=== PATIENT | male | born 1990 | race Two or more races ===

== ENCOUNTER 2017-06-26 19:15 | Emergency (ER) | payer OTHER ==
[~2017-06-26] VITALS: Ht 165.1 cm; Wt 72.6 kg
[~2017-06-26 19:15] MED LIST: IBUP200T77 PO; OXYC-327 PO; PENI250T85 PO
[2017-06-26 19:20] VITALS: BP 132/75
[2017-06-26] MEDS ORDERED: METH4TAB2 PO (19:51)
[2017-06-26] MEDS ORDERED: AMOX500C PO (19:51)
--- NOTE | 2017-06-26 19:51 | PHYS DOC ---
Past Medical History Past Medical History: Asthma Past Surgical History: Other Additional Past Surgical Histo: ACL/MENISCUS R KNEE Alcohol Use: Occasionally Drug Use: Marijuana Adult General Chief Complaint Chief Complaint: CHEST WALL PAIN HPI HPI Patient is a 26 year old male who presents with sore throat and sharp chest pain. Sore throat started last night. He felt feverish today but no temperature taken. He developed sharp left-sided chest pain today. Nonsmoker, no recent travel. No leg pain swelling or tenderness. No cough; no hemoptysis. He has asthma and has been using his meds as directed. Review of Systems Review of Systems Constitutional: Subjective fever or chills Eyes: Denies change in visual acuity, redness, or eye pain HENT: POS nasal congestion & sore throat Respiratory: Some cough but no shortness of breath Cardiovascular: sharp left sided chest pain GI: Denies abdominal pain, nausea, vomiting, bloody stools or diarrhea : Denies dysuria or hematuria Musculoskeletal: Denies back pain or joint pain; no leg pain or swelling Integument: Denies rash or skin lesions Neurologic: Denies headache, focal weakness or sensory changes Allergies Allergies Allergies Coded Allergies Type Severity Reaction Last Updated Verified No Known Drug Allergies 07/02/16 No Physical Exam Physical Exam Constitutional: Well developed, well nourished, no acute distress, non-toxic appearance. HENT: Normocephalic, atraumatic, bilateral external ears normal, TM clear bilaterally; oropharynx moist, bilateral tonsillar hypertrophy, exudate noted, erythema. No peritonsillar abscess noted, no pointing noted, uvula midline. No drooling. Nose normal. Eyes: PERRLA, EOMI, conjunctiva normal, no discharge. Neck: Normal range of motion, no tenderness, supple, no stridor. Cardiovascular:Heart rate regular rhythm, no murmur Lungs & Thorax: Bilateral breath sounds clear to auscultation. No rales, rhonchi or wheezing. No crepitance or subcut emphysema. Abdomen: Bowel sounds normal, soft, no tenderness, no masses, no pulsatile masses. Skin: Warm, dry, no erythema, no rash. Back: No tenderness, no CVA tenderness. Extremities: No tenderness, no cyanosis, no clubbing, ROM intact, no edema. Neurologic: Alert and oriented X 3, normal motor function, normal sensory function, no focal deficits noted. Psychologic: Affect normal, judgement normal, mood normal. Current Patient Data Vital Signs Vital Signs Date Time Temp Pulse Resp B/P (MAP) Pulse Ox O2 Delivery O2 Flow Rate FiO2 06/26/17 19:20 98.3 74 18 99 Room Air 98.3 EKG EKG EKG interpreted by myself at 1941 PM. Heart rate is 81, incomplete right bundle branch block, nonspecific ST changes, no ST elevation. Course & Med Decision Making Course & Med Decision Making Patient diarrhea by myself upon arrival. he has pharyngeal erythema and exudate. Chest pain appears pleuritic in nature. PERC Criteria Assessment: Age > 50: No HR > 100: No 02 < 95%: No H/o DVT/PE: No Recent trauma/surgery: No Hemoptysis No Exogenous Estrogen: No Unilateral Leg swelling: No Pretest probability > 15%: No Less than 2% risk of PE. No further work up is necessary Will presumptively treat for strep. Placed on amoxicillin and Medrol Dosepak. he has no respiratory compromise at this time. No active wheezing and no respiratory distress. He was given precautions on when to return. I have spoken with the patient and/or caregivers. I have explained the patient' s condition, diagnosis and treatment plan based on the information available to me at this time. I have answered the patient's and/or caregiver's questions and addressed any concerns. The patient and/or caregivers have as good an understanding of the patient's diagnosis, condition and treatment plan as can be expected at this point. The patient's condition is stable and appropriate for discharge from the emergency department. The patient will pursue further outpatient evaluation with the primary care physician or other designated or consulting physician as outlined in the discharge instructions. The patient and/or caregivers are agreeable to this plan of care and follow-up instructions have been explained in detail. The patient and/or caregivers have received these instructions in written format and have expressed an understanding of the discharge instructions. The patient and/or caregivers are aware that any significant change in condition or worsening of symptoms should prompt an immediate return to this or the closest emergency department or a call to 911. Shelley Disclaimer Dragon Disclaimer This electronic medical record was generated, in whole or in part, using a voice recognition dictation system. Departure Departure Impression: Primary Impression: Exudative pharyngitis Additional Impressions: Pleuritic chest pain Asthma Disposition: HOME, SELF-CARE Condition: GOOD Referrals: LANCE MARTINEZ MD (PCP) Patient Instructions: Viral and Bacterial Pharyngitis Scripts Methylprednisolone (MEDROL) 4 Mg Tab.ds.pk 1 PKG PO UD, #1 PKG Prov: RACHEL JIMENEZ MD 06/26/17 Amoxicillin (AMOXICILLIN) 500 Mg Capsule 1 CAP PO TID, #30 CAP Prov: RACHEL JIMENEZ MD 06/26/17 Problem Qualifiers Additional Impressions: Asthma Asthma severity: mild intermittent Asthma complication type: uncomplicated Qualified Codes: J45.20 - Mild intermittent asthma, uncomplicated RACHEL JIMENEZ MD Jun 26, 2017 19:51
--- NOTE | 2017-06-27 06:16 | EKG ---
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
== END 2017-06-26 19:55 | disposition home or self-care (01) ==
LOC: ER 19:15
DX: J02.9 Acute pharyngitis, unspecified (principal); J45.20 Mild intermittent asthma, uncomplicated
CPT/HCPCS: 93005; 99283-25

== ENCOUNTER 2017-09-07 22:51 | Emergency (ER) | payer OTHER ==
[~2017-09-07] VITALS: Ht 165.1 cm; Wt 72.6 kg
[~2017-09-07 22:51] MED LIST changes: +AMOX500C PO; +METH4TAB2 PO
[2017-09-07 23:22] LABS: BASO # 0.1 x10^3/uL (0.0-0.2); BASO % 1 % (0-3); EOS % 3 % (0-3); HEMATOCRIT 43.4 % (39.0-53.0); HEMOGLOBIN 14.5 g/dL (13.0-17.5); LYMPH # 2.7 x10^3/uL (1.0-4.8); LYMPH % 28 % (24-48); MEAN CORPUSCULAR HEMOGLOBIN 30 pg (25-35); MEAN CORPUSCULAR HGB CONC 34 g/dL (31-37); MEAN CORPUSCULAR VOLUME 90 fL (79-100); MONO % 7 % (0-9); NEUT % 61 % (31-73); PLATELET COUNT 168 x10^3/uL (140-400); RED BLOOD COUNT 4.82 x10^6/uL (4.30-5.70); RED CELL DISTRIBUTION WIDTH 13.4 % (11.5-14.5); WHITE BLOOD COUNT 9.5 x10^3/uL (4.0-11.0)
[2017-09-07] MEDS ORDERED: LIDO:MAALOX:DONNATAL 1:1:1 15 ML SINGLE DOSE SWSW ONE (23:30)
[2017-09-07] MEDS ORDERED: KETOROLAC 30 MG/ML INJ. IV ONE (23:30)
[2017-09-07 23:32] LABS: CALCIUM 9.2 mg/dL (8.5-10.1); CREATININE 0.8 mg/dL (0.7-1.3); GFR 116.9
[2017-09-07 23:38] LABS: ALBUMIN 3.7 g/dL (3.4-5.0); ALBUMIN/GLOBULIN RATIO 1.1 (1.0-1.7); TOTAL BILIRUBIN 0.2 mg/dL (0.2-1.0)
[2017-09-07 23:58] LABS: BARBITURATES NEG (NEG); BENZODIAZEPINES NEG (NEG); CANNABINOIDS POS (NEG); COCAINE POS (NEG); METHADONE NEG (NEG); OPIATES NEG (NEG); PHENCYCLIDINE NEG (NEG)
[2017-09-08] MEDS ORDERED: RANI150T6 PO (00:13)
--- NOTE | 2017-09-08 00:13 | PHYS DOC ---
Past Medical History Past Medical History: Asthma Past Surgical History: Other Additional Past Surgical Histo: ACL/MENISCUS R KNEE Alcohol Use: Occasionally Drug Use: Marijuana Adult General Chief Complaint Chief Complaint: CHEST PAIN HPI HPI Patient is a 26 year old male who presents with chest pain. The patient reports onset of pain about 3 hours prior to arrival while watching television. States pain is across his chest with radiation to back, describes as tightness , associated with shortness of breath. Denies nausea/vomiting, diaphoresis. Denies fevers/chills, cough, lower extremity pain/swelling. Reports previous history of similar pain several months ago, was evaluated here & no serious cause was identified. He reports marijuana use, history of asthma. Denies recent travel/surgery, no history of DVT/PE or family history of sudden cardiac . PCP is Dr. Pierre. Review of Systems Review of Systems Constitutional: Denies fever or chills Eyes: Denies change in visual acuity HENT: Denies nasal congestion or sore throat Respiratory: Denies cough, reports shortness of breath Cardiovascular: Reports chest pain, denies edema GI: Denies abdominal pain, nausea, vomiting Musculoskeletal: Denies back pain or joint pain Integument: Denies rash or skin lesions Neurologic: Denies headache, focal weakness or sensory changes Current Medications Current Medications Current Medications Medications (Trade) Dose Ordered Sig/Omar Start Time Stop Time Status Last Admin Dose Admin Ketorolac Tromethamine (Toradol) 30 mg 1X ONCE 09/07/17 23:30 09/07/17 23:31 DC 09/07/17 23:36 30 MG Multi-Ingredient Mouthwash/Gargle (Gi Cocktail Single Dose) 15 ml 1X ONCE 09/07/17 23:30 09/07/17 23:31 DC 09/07/17 23:35 15 ML Allergies Allergies Allergies Coded Allergies Type Severity Reaction Last Updated Verified No Known Drug Allergies 07/02/16 No Physical Exam Physical Exam Constitutional: Well developed, well nourished, no acute distress, non-toxic appearance. HENT: Normocephalic, atraumatic, bilateral external ears normal, oropharynx moist, nose normal. Eyes: conjunctiva normal, no discharge. Neck: supple, no stridor. Cardiovascular: RRR, no murmurs, no edema. Lungs & Thorax: LCTAB, no wheezing, no respiratory distress. reproducible tenderness with palpation over anterior chest wall. Abdomen: soft, nontender, nondistended. Skin: Warm, dry, no erythema, no rash. Back: No tenderness. Extremities: No tenderness, no edema. no calf tenderness or swelling. Neurologic: Alert and oriented X 3, no focal deficits noted. Psychologic: Affect normal, judgement normal, mood normal. Current Patient Data Vital Signs Vital Signs Date Time Temp Pulse Resp B/P (MAP) Pulse Ox O2 Delivery O2 Flow Rate FiO2 09/08/17 00:30 64 16 92/51 (65) 97 Room Air 09/07/17 22:58 98.2 98.2 Lab Values Laboratory Tests Test 09/07/17 23:05 09/07/17 23:46 White Blood Count 9.5 x10^3/uL (4.0-11.0) Red Blood Count 4.82 x10^6/uL (4.30-5.70) Hemoglobin 14.5 g/dL (13.0-17.5) Hematocrit 43.4 % (39.0-53.0) Mean Corpuscular Volume 90 fL (79-100) Mean Corpuscular Hemoglobin 30 pg (25-35) Mean Corpuscular Hemoglobin Concent 34 g/dL (31-37) Red Cell Distribution Width 13.4 % (11.5-14.5) Platelet Count 168 x10^3/uL (140-400) Neutrophils (%) (Auto) 61 % (31-73) Lymphocytes (%) (Auto) 28 % (24-48) Monocytes (%) (Auto) 7 % (0-9) Eosinophils (%) (Auto) 3 % (0-3) Basophils (%) (Auto) 1 % (0-3) Neutrophils # (Auto) 5.8 x10^3uL (1.8-7.7) Lymphocytes # (Auto) 2.7 x10^3/uL (1.0-4.8) Monocytes # (Auto) 0.7 x10^3/uL (0.0-1.1) Eosinophils # (Auto) 0.2 x10^3/uL (0.0-0.7) Basophils # (Auto) 0.1 x10^3/uL (0.0-0.2) Sodium Level 144 mmol/L (136-145) Potassium Level 4.0 mmol/L (3.5-5.1) Chloride Level 107 mmol/L (98-107) Carbon Dioxide Level 26 mmol/L (21-32) Anion Gap 11 (6-14) Blood Urea Nitrogen 22 mg/dL (8-26) Creatinine 0.8 mg/dL (0.7-1.3) Estimated GFR (Cockcroft-Gault) 116.9 BUN/Creatinine Ratio 28 (6-20) H Glucose Level 122 mg/dL (70-99) H Calcium Level 9.2 mg/dL (8.5-10.1) Total Bilirubin 0.2 mg/dL (0.2-1.0) Aspartate Amino Transferase (AST) 15 U/L (15-37) Alanine Aminotransferase (ALT) 11 U/L (16-63) L Alkaline Phosphatase 86 U/L (46-116) Troponin I Quantitative < 0.017 ng/mL (0.000-0.055) HP-Lsc-W-Type Natriuretic Peptide 20 pg/mL (0-124) Total Protein 7.0 g/dL (6.4-8.2) Albumin 3.7 g/dL (3.4-5.0) Albumin/Globulin Ratio 1.1 (1.0-1.7) Urine Opiates Screen Neg (NEG) Urine Methadone Screen Neg (NEG) Urine Barbiturates Neg (NEG) Urine Phencyclidine Screen Neg (NEG) Urine Amphetamine/Methamphetamine Neg (NEG) Urine Benzodiazepines Screen Neg (NEG) Urine Cocaine Screen Pos (NEG) Urine Cannabinoids Screen Pos (NEG) Urine Ethyl Alcohol Neg (NEG) Laboratory Tests 09/07/17 23:05 Laboratory Tests 09/07/17 23:05 EKG EKG interpreted by me: NSR rate 62, no acute ST/T wave changes, normal intervals, no ectopy.[] Radiology/Procedures Radiology/Procedures CXR: 2 views, interpreted by me: no cardiomegaly, no infiltrate, no pneumothorax, no acute process.[] Course & Med Decision Making Course & Med Decision Making Pertinent Labs and Imaging studies reviewed. (See chart for details) The patient presents with chest pain. Pain resolving upon arrival here. Gave toradol & GI cocktail. Obtained labs, EKG, CXR. No significant cardiopulmonary abnormality identified, but he did have cocaine & marijuana positive on tox screen. Counseled regarding cessation from drug abuse, particularly cocaine. Recommend rest, hydration, tylenol/ibuprofen for pain, try zantac, follow up with Dr. Pierre in 2-3 days, may require further cardiac evaluation. Come back for severe chest pain or shortness of breath, any otherwise worsening condition. Discharged home in stable condition. [] Dragon Disclaimer Dragon Disclaimer This electronic medical record was generated, in whole or in part, using a voice recognition dictation system. Departure Departure Impression: Primary Impression: Chest pain Disposition: , SELF-CARE Condition: STABLE Referrals: LANCE PIERRE MD (PCP) Patient Instructions: Chest Pain (Nonspecific), [id number] Additional Instructions: You were seen in the emergency department today for chest pain. Labs, EKG, & chest x-ray did not show a serious cause of symptoms. Please rest, take tylenol or ibuprofen for pain, use zantac, avoid using drugs especially cocaine. Follow up with Dr. Pierre in primary care clinic in 2-3 days. Come back for severe chest pain or shortness of breath, or any otherwise worsening condition. Scripts Ranitidine Hcl (ZANTAC) 150 Mg Tablet 150 MG PO DAILY, #15 TAB Prov: DAVID OCONNOR MD 09/08/17 DAVID OCONNOR MD Sep 08, 2017 00:13
[2017-09-08 00:30] VITALS: BP 92/51
--- NOTE | 2017-09-08 06:27 | EKG ---
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
--- NOTE | 2017-09-08 07:28 | RAD ---
Indication chest pain. Frontal and lateral views of the chest were obtained. No prior imaging of the chest is available. The heart and pulmonary vessels and mediastinum appear normal. The lungs are clear. There is no pleural fluid or pneumothorax. The bony structures appear grossly intact. IMPRESSION: Normal two-view chest
== END 2017-09-08 00:44 | disposition home or self-care (01) ==
LOC: ER 22:51
DX: R07.89 Other chest pain (principal); J45.909 Unspecified asthma, uncomplicated
CPT/HCPCS: 36415; 71020; 80053; 80307; 83880; 84484; 85025; 93005; 96374; 99285; J1885; G0479

== ENCOUNTER 2018-03-25 12:15 | Emergency (ER) | payer OTHER ==
[2018-03-25 13:28] LABS: BILIRUBIN,URINE NEGATIVE (NEG); CLARITY,URINE CLEAR; COLOR,URINE YELLOW; GLUCOSE,URINE NEGATIVE (NEG); NITRITE,URINE NEGATIVE (NEG); PH,URINE 6.5; PROTEIN,URINE NEGATIVE (NEG-TRACE)
[2018-03-25 13:35] LABS: BACTERIA,URINE 0 /HPF (0-FEW); RBC,URINE 0 /HPF (0-2); SQUAMOUS EPITHELIAL CELL,UR OCC /LPF; WBC,URINE 0 /HPF (0-4)
== END 2018-03-25 13:58 | disposition home or self-care (01) ==
LOC: ER 12:15
DX: S39.012A Strain of muscle, fascia and tendon of lower back, initial encounter (principal); J45.909 Unspecified asthma, uncomplicated; X58.XXXA Exposure to other specified factors, initial encounter; Y93.89 Activity, other specified; Y99.8 Other external cause status; Y92.89 Other specified places as the place of occurrence of the external cause
CPT/HCPCS: 81001; 99283

== ENCOUNTER 2021-09-24 02:49 | Inpatient (IN) | payer OTHER ==
[~2021-09-24] VITALS: Ht 165.1 cm; Wt 75.0 kg
[~2021-09-24 02:49] MED LIST changes: +CYCL5TAB PO; +IBUP-1060 PO; -OXYC-327 PO; +OXYC1TAB19 PO; +RANI-376 PO
[2021-09-24 03:10] LABS: BILIRUBIN,URINE NEGATIVE (NEG); CLARITY,URINE CLEAR; COLOR,URINE YELLOW; NITRITE,URINE NEGATIVE (NEG); PROTEIN,URINE NEGATIVE (NEG-TRACE)
--- NOTE | 2021-09-24 03:11 | PHYS DOC ---
Past Medical History Past Medical History: No Pertinent History, Asthma Past Surgical History: Other Additional Past Surgical Histo: ACL/MENISCUS R KNEE Smoking Status: Never Smoker Alcohol Use: Occasionally Drug Use: Marijuana General Adult EDM: Chief Complaint: ABDOMINAL PAIN HPI: HPI: Patient is a 30 year old male with history of asthma who presents with right upper quadrant pain. States that it has been on and off for the past month. He is unsure of any exacerbating factors. Usually goes away on its own. Occasionally associated wi th nausea. For the past 24 hours has had constant pain. Does not radiate today, but in the past has gone to the flank. No nausea/vomiting, fever/chills during this occasion. No diarrhea, hematochezia, or melena. Denies hematuria, urgency, frequency, or dysuria. No history of similar pain in the past. Occasional alcohol use, THC use, and cocaine use. Denies ever using drugs intravenously. Review of Systems: Review of Systems: Constitutional: Denies fever or chills. [] Eyes: Denies change in visual acuity. [] HENT: Denies nasal congestion or sore throat. [] Respiratory: Denies cough or shortness of breath. [] Cardiovascular: Denies chest pain or edema. [] GI: Ports abdominal pain. Nausea, vomiting, bloody stools or diarrhea. [] : Denies dysuria. [] Musculoskeletal: Denies back pain or joint pain. [] Integument: Denies rash. [] Neurologic: Denies headache, focal weakness or sensory changes. [] Endocrine: Denies polyuria or polydipsia. [] Lymphatic: Denies swollen glands. [] Psychiatric: Denies depression or anxiety. [] Heart Score: C/O Chest Pain: No Risk Factors: Risk Factors: DM, Current or recent (<one month) smoker, HTN, HLP, family history of CAD, obesity. Risk Scores: Score 0 - 3: 2.5% MACE over next 6 weeks - Discharge Home Score 4 - 6: 20.3% MACE over next 6 weeks - Admit for Clinical Observation Score 7 - 10: 72.7% MACE over next 6 weeks - Early Invasive Strategies Allergies: Allergies: Allergies Coded Allergies Type Severity Reaction Last Updated Verified No Known Drug Allergies 07/02/16 No Physical Exam: PE: Constitutional: Appears uncomfortable HENT: Normocephalic, atraumatic, Eyes: PERRLA, EOMI, conjunctiva normal, no discharge. [] Neck: Normal range of motion, no tenderness, supple, no stridor. [] Cardiovascular:Heart rate regular rhythm, no murmur [] Lungs & Thorax: Bilateral breath sounds clear to auscultation [] Abdomen: Isolated RUQ and epigastric tenderness to palpation on exam with some involuntary guarding. No rebound or rigidity. Skin: Warm, dry, no erythema, no rash. [] Back: No tenderness, no CVA tenderness. [] Extremities: Some clubbing of the fingers,, no edema. [] Neurologic: Alert and oriented X 3, normal motor function, normal sensory function, no focal deficits noted. [] Psychologic: Affect normal, judgement normal, mood normal. [] EKG: EKG: [] Radiology/Procedures: Radiology/Procedures: [] Impression: [facility] [address] [facility] [place], [place] [id number] IMAGING REPORT Signed PATIENT: NAVID PAULCOUNT: [id number] : 1990 LOCATION: ER AGE: 30 SEX: M EXAM STATUS: REG ER ORD. PHYSICIAN: SHELLEY PARSONS MD REASON: right upper quadrant pain PROCEDURE: ABDOMEN LTD Clinical History: Right upper quadrant pain Technique: Sonographic examination of the right upper quadrant of the abdomen was performed and multiple static images were obtained. Comparison: none Findings: Liver: The majority of the liver is visualized and appears homogeneous. There is increased echogenicity which further limits ultrasound sensitivity for possible solid liver lesion Common bile duct: Top normal limits in diameter measuring 5.8 mm. Gallbladder: Distended with sludge. Gallbladder wall measures 2.5 mm in thickness. There is no surrounding fluid however there is tenderness.. Pancreas: is not well visualized due to overlying bowel gas. Right kidney: appears normal and measures 9.6 cm in length. Main Portal Vein: Normal hepatopedal flow Aorta: normal IVC: normal Impression: 1. Fatty infiltration of the liver. The gallbladder is distended with sludge and there is tenderness suggesting mild acute cholecystitis. 2. Electronically signed by: Kierra Tenorio III, MD (09/24/2021 3:56 AM) [facility] DICTATED and SIGNED BY: KIERRA TENORIO III, MD DATE: 09/24/21 [id number] 0 Course & Med Decision Making: Course & Med Decision Making Pertinent Labs and Imaging studies reviewed. (See chart for details) Patient 30-year-old male with history of asthma who presents with right upper quadrant pain that has been constant for the past 24 hours with a prodrome of intermittent right upper quadrant pain for the past month. Afebrile, hemodynamically stable on arrival. In mild distress with focal right upper quadrant and epigastric pain on exam. Pancreatitis, cholecystitis, choledocholithiasis, biliary colic. Considered renal colic, but no blood on UA. Also considered pulmonary process, but not pleuritic, normal work of breathing, and normal O2 sat will defer any pulmonary work-up for the time being. RUQ US, Lipase, CMP, CBC ordered. 0310 Labs reassuring, however ultrasound concerning for early cholecystitis with biliary sludge, distended gallbladder, and positive sonographic Vann sign. Given Zosyn. Discussed with general surgeon, Dr. Miranda, who recommends admission to medicine service and plans on likely operative management. 0423 Shelley Disclaimer: Dragon Disclaimer: This electronic medical record was generated, in whole or in part, using a voice recognition dictation system. Departure Departure Impression: Primary Impression: Cholecystitis Disposition: ADMITTED INPATIENT Condition: STABLE Referrals: LANCE MARTINEZ MD (PCP) SHELLEY PARSONS MD Sep 24, 2021 03:11
[2021-09-24] MEDS ORDERED: MORPHINE SULFATE 4 MG/ML INJ. IVP ONE ×2 (03:15→04:00)
[2021-09-24 03:18] LABS: BACTERIA,URINE 0 /HPF (0-FEW); RBC,URINE 0 /HPF (0-2); WBC,URINE 0 /HPF (0-4)
[2021-09-24 03:22] LABS: BASO # 0.1 x10^3/uL (0.0-0.2); BASO % 1 % (0-3); EOS # 0.3 x10^3/uL (0.0-0.7); EOS % 3 % (0-3); HEMATOCRIT 41.9 % (39.0-53.0); HEMOGLOBIN 14.2 g/dL (13.0-17.5); LYMPH # 2.7 x10^3/uL (1.0-4.8); LYMPH % 29 % (24-48); MEAN CORPUSCULAR HEMOGLOBIN 30 pg (25-35); MEAN CORPUSCULAR HGB CONC 34 g/dL (31-37); MEAN CORPUSCULAR VOLUME 88 fL (79-100); MONO # 0.8 x10^3/uL (0.0-1.1); MONO % 8 % (0-9); NEUT # 5.6 x10^3/uL (1.8-7.7); NEUT % 59 % (31-73); PLATELET COUNT 200 x10^3/uL (140-400); RED BLOOD COUNT 4.75 x10^6/uL (4.30-5.70); RED CELL DISTRIBUTION WIDTH 13.3 % (11.5-14.5); WHITE BLOOD COUNT 9.5 x10^3/uL (4.0-11.0)
[2021-09-24 03:29] LABS: CALCIUM 8.6 mg/dL (8.5-10.1); CREATININE 0.9 mg/dL (0.7-1.3); GFR 99.1; POTASSIUM 4.1 mmol/L (3.5-5.1)
[2021-09-24 03:36] LABS: ALBUMIN 3.4 g/dL (3.4-5.0); ALBUMIN/GLOBULIN RATIO 1.1 (1.0-1.7); TOTAL BILIRUBIN 0.2 mg/dL (0.2-1.0); TOTAL PROTEIN 6.6 g/dL (6.4-8.2)
--- NOTE | 2021-09-24 03:58 | RAD ---
Clinical History: Right upper quadrant pain Technique: Sonographic examination of the right upper quadrant of the abdomen was performed and mult iple static images were obtained. Comparison: none Findings: Liver: The majority of the liver is visualized and appears homogeneous. There is increased echogenic ity which further limits ultrasound sensitivity for possible solid liver lesion Common bile duct: Top normal limits in diameter measuring 5.8 mm. Gallbladder: Distended with sludge. Gallbladder wall measures 2.5 mm in thickness. There is no surro unding fluid however there is tenderness.. Pancreas: is not well visualized due to overlying bowel gas. Right kidney: appears normal and measures 9.6 cm in length. Main Portal Vein: Normal hepatopedal flow Aorta: normal IVC: normal Impression: 1. Fatty infiltration of the liver. The gallbladder is distended with sludge and there is tenderness suggesting mild acute cholecystitis. 2. Electronically signed by: Travis Valdes III, MD (09/24/2021 3:56 AM) [facility]
[2021-09-24] MEDS ORDERED: PIPERACILLIN/TAZOBACTAM 4.5 GM in IV NORMAL SALINE 100ML 100 ML IV ONE (04:15)
[2021-09-24] MEDS ORDERED: ONDANSETRON PF 4 MG/2 ML VIAL. IVP PRN ×2 (04:30→09:15)
[2021-09-24] MEDS ORDERED: MORPHINE SULFATE 4 MG/ML INJ. IVP PRN (04:30)
--- NOTE | 2021-09-24 09:08 | PDOC2 ---
ELEANOR NAVARRO [employer] 09/24/21 0908: CONSULT Date of Consult Date of Consult DATE: 09/24/21 TIME: 09:04 Reason for Consult Reason for Consult: cholecystitis Referring Physician Referring Physician: ER Identification/Chief Complaint Chief Complaint abdominal pain Source Source: Chart review, Patient History of Present Illness Reason for Visit: Reports a month of worsening abdominal pain. Nausea and emesis noted. Was treated by pcp with nausea medication. Can not relate that anything aggravates his symptoms. Progressively worsening pain. Past Medical History GI: GERD Past Surgical History Past Surgical History: No pertinent history Family History Family History: Other (noncontributory to current illness ) Social History No ALCOHOL: rare Drugs: Marijuana Current Problem List Problem List Problems Medical Problems: (1) Cholecystitis Status: Acute Current Medications Current Medications Current Medications Morphine Sulfate (Morphine Sulfate) 4 mg 1X ONCE IVP Last administered on 09/24/21at 03:22; Start 09/24/21 at 03:15; Stop 09/24/21 at 03:16; Status DC Morphine Sulfate (Morphine Sulfate) 4 mg 1X ONCE IVP Last administered on 09/24/21at 04:15; Start 09/24/21 at 04:00; Stop 09/24/21 at 04:01; Status DC Piperacillin Sod/ Tazobactam Sod 4.5 gm/Sodium Chloride 100 ml @ 200 mls/hr 1X ONCE IV Last administered on 09/24/21at 04:17; Start 09/24/21 at 04:15; Stop 09/24/21 at 04:44; Status DC Ondansetron HCl (Zofran) 4 mg PRN Q8HRS PRN IVP NAUSEA/VOMITING Last administ ered on 09/24/21at 08:05; Start 09/24/21 at 04:30; Stop 09/25/21 at 04:29 Morphine Sulfate (Morphine Sulfate) 4 mg PRN Q2HR PRN IVP PAIN Last administered on 09/24/21at 08:10; Start 09/24/21 at 04:30; Stop 09/25/21 at 04:29 Active Scripts Active Ibuprofen 800 Mg Tablet 800 Mg PO PRN Q6HRS PRN Cyclobenzaprine Hcl 5 Mg Tablet 1 Tab PO QHS Zantac (Ranitidine Hcl) 150 Mg Tablet 150 Mg PO DAILY Medrol (Methylprednisolone) 4 Mg Tab.ds.pk 1 Pkg PO UD Amoxicillin 500 Mg Capsule 1 Cap PO TID Percocet 7.5-325 Mg Tablet (Oxycodone/Acetaminophen) 1 Each Tablet 1-2 Tab PO PRN Q6HRS PRN Reported Ibuprofen 200 Mg Tablet 800 Mg PO Penicillin V Potassium 250 Mg Tablet 250 Mg PO Allergies Allergies: Coded Allergies: No Known Drug Allergies (Unverified , 07/02/16) ROS General: No: Chills, Fatigue PSYCHOLOGICAL ROS: No: Anxiety, Depression Eyes: No Blurry vision, No Double vision HEENT: No: Heacaches, Sore Throat Hematological and Lymphatic: No: Bleeding Problems, Blood Clots Respiratory: No: Cough, Shortness of breath Cardiovascular: No Chest Pain, No Palpitations Gastrointestinal: Yes Other (see hpi) Genitourinary: No Dysuria, No Hematuria Musculoskeletal: No Joint Pain, No Muscle Pain Neurological: No Impaired Coord/balance Skin: No Pruritus, No Rash Physical Exam General: Alert, Oriented X3, Cooperative HEENT: Atraumatic, PERRLA Lungs: Clear to auscultation, Normal air movement Heart: Regular rate, Normal S1, Normal S2 Abdomen: Soft, Other (moderate RUQ and RLQ pain ) Extremities: No clubbing, No cyanosis Skin: No rashes, No breakdown Neuro: Normal gait, Normal speech Psych/Mental Status: Mental status NL, Mood NL MUSCULOSKELETAL: No deformity, No muscular tenderness noted Vitals VITALS Vital Signs Date Time Temp Pulse Resp B/P (MAP) Pulse Ox O2 Delivery O2 Flow Rate FiO2 09/24/21 06:14 64 11 112/59 (76) 94 Room Air 09/24/21 03:10 98.0 98.0 Labs Labs Laboratory Tests Test 09/24/21 02:55 09/24/21 03:17 09/24/21 06:39 Urine Collection Type Void Urine Color Yellow Urine Clarity Clear Urine pH 6.0 (<5.0-8.0) Urine Specific [place] >=1.030 (1.000-1.030) Urine Protein Negative mg/dL (NEG-TRACE) Urine Glucose (UA) Negative mg/dL (NEG) Urine Ketones (Stick) Negative mg/dL (NEG) Urine Blood Negative (NEG) Urine Nitrite Negative (NEG) Urine Bilirubin Negative (NEG) Urine Urobilinogen Dipstick 1.0 mg/dL (0.2 mg/dL) Urine Leukocyte Esterase Negative (NEG) Urine RBC 0 /HPF (0-2) Urine WBC 0 /HPF (0-4) Urine Squamous Epithelial Cells Few /LPF Urine Bacteria 0 /HPF (0-FEW) Urine Mucus Slight /LPF White Blood Count 9.5 x10^3/uL (4.0-11.0) Red Blood Count 4.75 x10^6/uL (4.30-5.70) Hemoglobin 14.2 g/dL (13.0-17.5) Hematocrit 41.9 % (39.0-53.0) Mean Corpuscular Volume 88 fL (79-100) Mean Corpuscular Hemoglobin 30 pg (25-35) Mean Corpuscular Hemoglobin Concent 34 g/dL (31-37) Red Cell Distribution Width 13.3 % (11.5-14.5) Platelet Count 200 x10^3/uL (140-400) Neutrophils (%) (Auto) 59 % (31-73) Lymphocytes (%) (Auto) 29 % (24-48) Monocytes (%) (Auto) 8 % (0-9) Eosinophils (%) (Auto) 3 % (0-3) Basophils (%) (Auto) 1 % (0-3) Neutrophils # (Auto) 5.6 x10^3/uL (1.8-7.7) Lymphocytes # (Auto) 2.7 x10^3/uL (1.0-4.8) Monocytes # (Auto) 0.8 x10^3/uL (0.0-1.1) Eosinophils # (Auto) 0.3 x10^3/uL (0.0-0.7) Basophils # (Auto) 0.1 x10^3/uL (0.0-0.2) Sodium Level 140 mmol/L (136-145) Potassium Level 4.1 mmol/L (3.5-5.1) Chloride Level 107 mmol/L (98-107) Carbon Dioxide Level 27 mmol/L (21-32) Anion Gap 6 (6-14) Blood Urea Nitrogen 17 mg/dL (8-26) Creatinine 0.9 mg/dL (0.7-1.3) Estimated GFR (Cockcroft-Gault) 99.1 BUN/Creatinine Ratio 19 (6-20) Glucose Level 108 mg/dL (70-99) Calcium Level 8.6 mg/dL (8.5-10.1) Total Bilirubin 0.2 mg/dL (0.2-1.0) Aspartate Amino Transf (AST/SGOT) 16 U/L (15-37) Alanine Aminotransferase (ALT/SGPT) 21 U/L (16-63) Alkaline Phosphatase 87 U/L (46-116) Total Protein 6.6 g/dL (6.4-8.2) Albumin 3.4 g/dL (3.4-5.0) Albumin/Globulin Ratio 1.1 (1.0-1.7) Lipase 169 U/L (73-393) SARS-CoV-2 Antigen (Rapid) Negative (NEGATIVE) Laboratory Tests Test 09/24/21 02:55 09/24/21 03:17 09/24/21 06:39 Urine Collection Type Void Urine Color Yellow Urine Clarity Clear Urine pH 6.0 (<5.0-8.0) Urine Specific [place] >=1.030 (1.000-1.030) Urine Protein Negative mg/dL (NEG-TRACE) Urine Glucose (UA) Negative mg/dL (NEG) Urine Ketones (Stick) Negative mg/dL (NEG) Urine Blood Negative (NEG) Urine Nitrite Negative (NEG) Urine Bilirubin Negative (NEG) Urine Urobilinogen Dipstick 1.0 mg/dL (0.2 mg/dL) Urine Leukocyte Esterase Negative (NEG) Urine RBC 0 /HPF (0-2) Urine WBC 0 /HPF (0-4) Urine Squamous Epithelial Cells Few /LPF Urine Bacteria 0 /HPF (0-FEW) Urine Mucus Slight /LPF White Blood Count 9.5 x10^3/uL (4.0-11.0) Red Blood Count 4.75 x10^6/uL (4.30-5.70) Hemoglobin 14.2 g/dL (13.0-17.5) Hematocrit 41.9 % (39.0-53.0) Mean Corpuscular Volume 88 fL (79-100) Mean Corpuscular Hemoglobin 30 pg (25-35) Mean Corpuscular Hemoglobin Concent 34 g/dL (31-37) Red Cell Distribution Width 13.3 % (11.5-14.5) Platelet Count 200 x10^3/uL (140-400) Neutrophils (%) (Auto) 59 % (31-73) Lymphocytes (%) (Auto) 29 % (24-48) Monocytes (%) (Auto) 8 % (0-9) Eosinophils (%) (Auto) 3 % (0-3) Basophils (%) (Auto) 1 % (0-3) Neutrophils # (Auto) 5.6 x10^3/uL (1.8-7.7) Lymphocytes # (Auto) 2.7 x10^3/uL (1.0-4.8) Monocytes # (Auto) 0.8 x10^3/uL (0.0-1.1) Eosinophils # (Auto) 0.3 x10^3/uL (0.0-0.7) Basophils # (Auto) 0.1 x10^3/uL (0.0-0.2) Sodium Level 140 mmol/L (136-145) Potassium Level 4.1 mmol/L (3.5-5.1) Chloride Level 107 mmol/L (98-107) Carbon Dioxide Level 27 mmol/L (21-32) Anion Gap 6 (6-14) Blood Urea Nitrogen 17 mg/dL (8-26) Creatinine 0.9 mg/dL (0.7-1.3) Estimated GFR (Cockcroft-Gault) 99.1 BUN/Creatinine Ratio 19 (6-20) Glucose Level 108 mg/dL (70-99) Calcium Level 8.6 mg/dL (8.5-10.1) Total Bilirubin 0.2 mg/dL (0.2-1.0) Aspartate Amino Transf (AST/SGOT) 16 U/L (15-37) Alanine Aminotransferase (ALT/SGPT) 21 U/L (16-63) Alkaline Phosphatase 87 U/L (46-116) Total Protein 6.6 g/dL (6.4-8.2) Albumin 3.4 g/dL (3.4-5.0) Albumin/Globulin Ratio 1.1 (1.0-1.7) Lipase 169 U/L (73-393) SARS-CoV-2 Antigen (Rapid) Negative (NEGATIVE) Assessment/Plan Assessment/Plan abdominal pain sludge and probe tenderness, normal lab will check hida for acute cholecystitis EVA UMANZOR MD 09/24/21 1127: CONSULT Assessment/Plan Assessment/Plan Agree with Terrance's assessment and plan. Will fu on HIDA ELEANOR Connelly APRN Sep 24, 2021 09:08 EVA UMANZOR MD Sep 24, 2021 11:27
[2021-09-24] MEDS ORDERED: CALCIUM CARBONATE 500 MG TAB.CHEW PO PRN (09:15)
[2021-09-24] MEDS ORDERED: MORPHINE SULFATE 2 MG/ML INJ. IV PRN (09:15)
[2021-09-24] MEDS ORDERED: PROCHLORPERAZINE 10 MG/2 ML VIAL. IVP PRN (09:15)
[2021-09-24] MEDS ORDERED: ELECTROLYTE (NON-ICU) PROTOCOL. MC PRN (09:15)
[2021-09-24] MEDS ORDERED: ACETAMINOPHEN 325 MG TABLET. PO PRN (09:15)
[2021-09-24] MEDS ORDERED: ZOLPIDEM 5 MG TABLET. PO PRN (09:15)
--- NOTE | 2021-09-24 09:27 | PDOC1 ---
History and Physical Date of Service: DOS: DATE: 09/24/21 TIME: 09:18 Chief Complaint: Chief Complain: abdominal pain History of Present Illness: HPI: Patient is a 30-year-old male presented to the emergency room overnight due to ongoing right upper quadrant pain. Patient says he has been having the pain going on for about 1 month. Says the pain will come on suddenly and is located to his right upper quadrant sometimes radiates around his flank. He says there is times when the pain will just go away and other times he will just have to deal with the pain until it goes away. However he has been having constant pain for the past 24 h. Reports decreased appetite. denies nausea vomiting fever chills. No diarrhea or melena. Presented the emergency room where abdominal ultrasound showed acute cholecystitis. He was given dose of Zosyn and plan for admission with surgical consult. When I evaluated the patient he was resting in bed confirmed history. Says pain is still present very tender on exam. Past Medical/Surgical History: PMH/PSH: Asthma Allergies: Allergies: Coded Allergies: No Known Drug Allergies (Unverified , 07/02/16) Family History: Family History: Reviewed with patient denies family history Social History: Social History: Denies alcohol tobacco use. Occasional marijuana use Current Medications: Current Medications Current Medications Morphine Sulfate (Morphine Sulfate) 4 mg 1X ONCE IVP Last administered on 09/24/21at 03:22; Start 09/24/21 at 03:15; Stop 09/24/21 at 03:16; Status DC Morphine Sulfate (Morphine Sulfate) 4 mg 1X ONCE IVP Last administered on 09/24/21at 04:15; Start 09/24/21 at 04:00; Stop 09/24/21 at 04:01; Status DC Piperacillin Sod/ Tazobactam Sod 4.5 gm/Sodium Chloride 100 ml @ 200 mls/hr 1X ONCE IV Last administered on 09/24/21at 04:17; Start 09/24/21 at 04:15; Stop 09/24/21 at 04:44; Status DC Ondansetron HCl (Zofran) 4 mg PRN Q8HRS PRN IVP NAUSEA/VOMITING Last administered on 09/24/21at 08:05; Start 09/24/21 at 04:30; Stop 09/25/21 at 04:29 Morphine Sulfate (Morphine Sulfate) 4 mg PRN Q2HR PRN IVP PAIN Last administered on 09/24/21at 08:10; Start 09/24/21 at 04:30; Stop 09/25/21 at 04:29 Ondansetron HCl (Zofran) 4 mg PRN Q6HRS PRN IVP NAUSEA/VOMITING; Start 09/24/21 at 09:15 Prochlorperazine Edisylate (Compazine) 10 mg PRN Q6HRS PRN IVP NAUSEA/VOMITING; Start 09/24/21 at 09:15 Calcium Carbonate/ Glycine (Tums) 500 mg PRN Q3HRS PRN PO UPSET STOMACH; Start 09/24/21 at 09:15 Zolpidem Tartrate (Ambien) 5 mg PRN QHS PRN PO INSOMNIA, MAY REPEAT IN 1HR; Start 09/24/21 at 09:15 Info (Non-Icu Electrolyte Protocol) 1 ea PRN DAILY PRN MC SEE COMMENTS; Start 09/24/21 at 09:15 Oxycodone HCl (Roxicodone) 5 mg PRN Q3HRS PRN PO BREAKTHROUGH PAIN; Start 09/24/21 at 09:15; Status UNV Morphine Sulfate (Morphine Sulfate) 1 mg PRN Q1HR PRN IV PAIN; Start 09/24/21 at 09:15; Status UNV Morphine Sulfate (Morphine Sulfate) 2 mg PRN Q1HR PRN IV PAIN; Start 09/24/21 at 09:15; Status UNV Acetaminophen (Tylenol) 650 mg PRN Q6HRS PRN PO Headaches, Temp > 101.5F; Start 09/24/21 at 09:15; Status UNV Senna/Docusate Sodium (Senna Plus) 1 tab BID PO ; Start 09/24/21 at 21:00; Status UNV Heparin Sodium (Porcine) (Heparin Sodium) 5,000 unit Q8HRS SQ ; Start 09/24/21 at 14:00; Status UNV Active Scripts Active Ibuprofen 800 Mg Tablet 800 Mg PO PRN Q6HRS PRN Cyclobenzaprine Hcl 5 Mg Tablet 1 Tab PO QHS Zantac (Ranitidine Hcl) 150 Mg Tablet 150 Mg PO DAILY Medrol (Methylprednisolone) 4 Mg Tab.ds.pk 1 Pkg PO UD Amoxicillin 500 Mg Capsule 1 Cap PO TID Percocet 7.5-325 Mg Tablet (Oxycodone/Acetaminophen) 1 Each Tablet 1-2 Tab PO PRN Q6HRS PRN Reported Ibuprofen 200 Mg Tablet 800 Mg PO Penicillin V Potassium 250 Mg Tablet 250 Mg PO ROS: Review of Systems Review of System Unless noted in HPI 14 point review systems was negative Physical Exam: Vital Signs: Vital Signs Date Time Temp Pulse Resp B/P (MAP) Pulse Ox O2 Delivery O2 Flow Rate FiO2 09/24/21 06:14 64 11 112/59 (76) 94 Room Air 09/24/21 03:10 98.0 98.0 Physcial Exam: GEN: Patient in distress secondary to pain ed HEENT: Normal cephalic, atraumatic, external auditory canals are patent EYES: Extraocular muscles are intact, pupil are equally round and reactive to light and accommodation MUSCULOSKELETAL: Well developed , well nourished, good range of motion ENDOCRINE: No thyromegaly was palpated LYMPHATICS: No cervical chain or axillary nodes were noted HEMATOPOIETIC: No bruising NECK: Supple, no JVD, no thyromegaly was noted LUNGS: Clear to auscultation in all lung ferrell without rhonchi or wheezing HEART: RRR, S1, S2 present. Peripheral pulses intact, no obvious murmurs noted ABDOMEN: Diffusely tender even with light palpation. Cannot accurately assess any organomegaly. EXTREMITIES: Without clubbing, cyanosis, or edema. Pedal pulses intact NEUROLOGIC: Normal speech and tone. A&O x 3, moves all extremities, no obvious focal deficits PSYCHIATRIC: Normal affect, normal mood. Stable SKIN: No ulcerations or rashes, good skin turgor, no jaundice VASCULAR: Good capillary refill, neurovascular bundle appears to be intact Labs: Labs: Laboratory Tests Test 09/24/21 02:55 09/24/21 03:17 09/24/21 06:39 Urine Collection Type Void Urine Color Yellow Urine Clarity Clear Urine pH 6.0 (<5.0-8.0) Urine Specific [place] >=1.030 (1.000-1.030) Urine Protein Negative mg/dL (NEG-TRACE) Urine Glucose (UA) Negative mg/dL (NEG) Urine Ketones (Stick) Negative mg/dL (NEG) Urine Blood Negative (NEG) Urine Nitrite Negative (NEG) Urine Bilirubin Negative (NEG) Urine Urobilinogen Dipstick 1.0 mg/dL (0.2 mg/dL) Urine Leukocyte Esterase Negative (NEG) Urine RBC 0 /HPF (0-2) Urine WBC 0 /HPF (0-4) Urine Squamous Epithelial Cells Few /LPF Urine Bacteria 0 /HPF (0-FEW) Urine Mucus Slight /LPF White Blood Count 9.5 x10^3/uL (4.0-11.0) Red Blood Count 4.75 x10^6/uL (4.30-5.70) Hemoglobin 14.2 g/dL (13.0-17.5) Hematocrit 41.9 % (39.0-53.0) Mean Corpuscular Volume 88 fL (79-100) Mean Corpuscular Hemoglobin 30 pg (25-35) Mean Corpuscular Hemoglobin Concent 34 g/dL (31-37) Red Cell Distribution Width 13.3 % (11.5-14.5) Platelet Count 200 x10^3/uL (140-400) Neutrophils (%) (Auto) 59 % (31-73) Lymphocytes (%) (Auto) 29 % (24-48) Monocytes (%) (Auto) 8 % (0-9) Eosinophils (%) (Auto) 3 % (0-3) Basophils (%) (Auto) 1 % (0-3) Neutrophils # (Auto) 5.6 x10^3/uL (1.8-7.7) Lymphocytes # (Auto) 2.7 x10^3/uL (1.0-4.8) Monocytes # (Auto) 0.8 x10^3/uL (0.0-1.1) Eosinophils # (Auto) 0.3 x10^3/uL (0.0-0.7) Basophils # (Auto) 0.1 x10^3/uL (0.0-0.2) Sodium Level 140 mmol/L (136-145) Potassium Level 4.1 mmol/L (3.5-5.1) Chloride Level 107 mmol/L (98-107) Carbon Dioxide Level 27 mmol/L (21-32) Anion Gap 6 (6-14) Blood Urea Nitrogen 17 mg/dL (8-26) Creatinine 0.9 mg/dL (0.7-1.3) Estimated GFR (Cockcroft-Gault) 99.1 BUN/Creatinine Ratio 19 (6-20) Glucose Level 108 mg/dL (70-99) Calcium Level 8.6 mg/dL (8.5-10.1) Total Bilirubin 0.2 mg/dL (0.2-1.0) Aspartate Amino Transf (AST/SGOT) 16 U/L (15-37) Alanine Aminotransferase (ALT/SGPT) 21 U/L (16-63) Alkaline Phosphatase 87 U/L (46-116) Total Protein 6.6 g/dL (6.4-8.2) Albumin 3.4 g/dL (3.4-5.0) Albumin/Globulin Ratio 1.1 (1.0-1.7) Lipase 169 U/L (73-393) SARS-CoV-2 Antigen (Rapid) Negative (NEGATIVE) Laboratory Tests Test 09/24/21 02:55 09/24/21 03:17 09/24/21 06:39 Urine Collection Type Void Urine Color Yellow Urine Clarity Clear Urine pH 6.0 (<5.0-8.0) Urine Specific [place] >=1.030 (1.000-1.030) Urine Protein Negative mg/dL (NEG-TRACE) Urine Glucose (UA) Negative mg/dL (NEG) Urine Ketones (Stick) Negative mg/dL (NEG) Urine Blood Negative (NEG) Urine Nitrite Negative (NEG) Urine Bilirubin Negative (NEG) Urine Urobilinogen Dipstick 1.0 mg/dL (0.2 mg/dL) Urine Leukocyte Esterase Negative (NEG) Urine RBC 0 /HPF (0-2) Urine WBC 0 /HPF (0-4) Urine Squamous Epithelial Cells Few /LPF Urine Bacteria 0 /HPF (0-FEW) Urine Mucus Slight /LPF White Blood Count 9.5 x10^3/uL (4.0-11.0) Red Blood Count 4.75 x10^6/uL (4.30-5.70) Hemoglobin 14.2 g/dL (13.0-17.5) Hematocrit 41.9 % (39.0-53.0) Mean Corpuscular Volume 88 fL (79-100) Mean Corpuscular Hemoglobin 30 pg (25-35) Mean Corpuscular Hemoglobin Concent 34 g/dL (31-37) Red Cell Distribution Width 13.3 % (11.5-14.5) Platelet Count 200 x10^3/uL (140-400) Neutrophils (%) (Auto) 59 % (31-73) Lymphocytes (%) (Auto) 29 % (24-48) Monocytes (%) (Auto) 8 % (0-9) Eosinophils (%) (Auto) 3 % (0-3) Basophils (%) (Auto) 1 % (0-3) Neutrophils # (Auto) 5.6 x10^3/uL (1.8-7.7) Lymphocytes # (Auto) 2.7 x10^3/uL (1.0-4.8) Monocytes # (Auto) 0.8 x10^3/uL (0.0-1.1) Eosinophils # (Auto) 0.3 x10^3/uL (0.0-0.7) Basophils # (Auto) 0.1 x10^3/uL (0.0-0.2) Sodium Level 140 mmol/L (136-145) Potassium Level 4.1 mmol/L (3.5-5.1) Chloride Level 107 mmol/L (98-107) Carbon Dioxide Level 27 mmol/L (21-32) Anion Gap 6 (6-14) Blood Urea Nitrogen 17 mg/dL (8-26) Creatinine 0.9 mg/dL (0.7-1.3) Estimated GFR (Cockcroft-Gault) 99.1 BUN/Creatinine Ratio 19 (6-20) Glucose Level 108 mg/dL (70-99) Calcium Level 8.6 mg/dL (8.5-10.1) Total Bilirubin 0.2 mg/dL (0.2-1.0) Aspartate Amino Transf (AST/SGOT) 16 U/L (15-37) Alanine Aminotransferase (ALT/SGPT) 21 U/L (16-63) Alkaline Phosphatase 87 U/L (46-116) Total Protein 6.6 g/dL (6.4-8.2) Albumin 3.4 g/dL (3.4-5.0) Albumin/Globulin Ratio 1.1 (1.0-1.7) Lipase 169 U/L (73-393) SARS-CoV-2 Antigen (Rapid) Negative (NEGATIVE) Assessment/Plan Assessment/Plan Acute cholecystitis -Patient with 1 month history of intermittent right upper quadrant pain. Pain worsening or more persistent causing him to present. Remy ultrasound treating as acute cholecystitis -Surgical consult. Discussed with them on the floor. Ordering HIDA scan and will have further plans after that -Keep n.p.o. -Discussed with surgical team about antibiotics they were okay with holding off for the moment. Patient did receive a dose of Zosyn in the emergency room -Pain control as needed -No home meds to resume -DVT prophylaxis I discussed advance care planning with this patient for approximately 17 min Justifications for Admission Other Justification PARVIN YAN MD Sep 24, 2021 09:27
--- NOTE | 2021-09-24 10:41 | NUR ---
SW following. Discussed with RN, pt from home with sister, room air, NPO, rapid COVID-19 negative. Surgery following. RN advised no SW needs at this time. SW will continue to follow.
[2021-09-24 11:00] VITALS: BP 99/50
[2021-09-24 15:00] VITALS: BP 93/47
[2021-09-24] MEDS: KETOROLAC 15 MG/ML VIAL. IVP PRN (18:13)
[2021-09-24] MEDS: HEPARIN for SUB-Q USE 5,000 UNIT/ML VIAL. SQ SCH ×2 (18:20→19:26)
[2021-09-24 19:00] VITALS: BP 98/48
[2021-09-24] MEDS: SENNOSIDES/DOCUSATE 8.6/50MG TABLET. PO SCH (20:36)
[2021-09-24 23:00] VITALS: BP 113/59
[2021-09-25] MEDS: KETOROLAC 15 MG/ML VIAL. IVP PRN (02:16)
[2021-09-25] MEDS: HEPARIN for SUB-Q USE 5,000 UNIT/ML VIAL. SQ SCH ×3 (02:18→22:00)
[2021-09-25 03:00] VITALS: BP 113/57
[2021-09-25 07:00] VITALS: BP 118/67
--- NOTE | 2021-09-25 07:35 | PDOC ---
SURGICAL PROGRESS NOTE DATE: 09/25/21 TIME: 07:34 Subjective Patient feeling better this morning hungry Vital Signs Vital Signs Date Time Temp Pulse Resp B/P (MAP) Pulse Ox O2 Delivery O2 Flow Rate FiO2 09/25/21 03:00 98.2 51 20 113/57 (75) 96 98.2 09/24/21 23:00 Room Air I&O Intake and Output 09/25/21 07:00 Intake Total 0 ml Balance 0 ml Intake Oral 0 ml # Voids 3 PATIENT HAS A KAY: No General: Alert, Oriented X3, Cooperative, mild distress Abdomen: Normal bowel sounds, Soft, Other (Tender palpation right upper quad) Labs Laboratory Tests Test 09/24/21 02:55 09/24/21 03:17 09/24/21 06:39 Urine Collection Type Void Urine Color Yellow Urine Clarity Clear Urine pH 6.0 (<5.0-8.0) Urine Specific [place] >=1.030 (1.000-1.030) Urine Protein Negative mg/dL (NEG-TRACE) Urine Glucose (UA) Negative mg/dL (NEG) Urine Ketones (Stick) Negative mg/dL (NEG) Urine Blood Negative (NEG) Urine Nitrite Negative (NEG) Urine Bilirubin Negative (NEG) Urine Urobilinogen Dipstick 1.0 mg/dL (0.2 mg/dL) Urine Leukocyte Esterase Negative (NEG) Urine RBC 0 /HPF (0-2) Urine WBC 0 /HPF (0-4) Urine Squamous Epithelial Cells Few /LPF Urine Bacteria 0 /HPF (0-FEW) Urine Mucus Slight /LPF White Blood Count 9.5 x10^3/uL (4.0-11.0) Red Blood Count 4.75 x10^6/uL (4.30-5.70) Hemoglobin 14.2 g/dL (13.0-17.5) Hematocrit 41.9 % (39.0-53.0) Mean Corpuscular Volume 88 fL (79-100) Mean Corpuscular Hemoglobin 30 pg (25-35) Mean Corpuscular Hemoglobin Concent 34 g/dL (31-37) Red Cell Distribution Width 13.3 % (11.5-14.5) Platelet Count 200 x10^3/uL (140-400) Neutrophils (%) (Auto) 59 % (31-73) Lymphocytes (%) (Auto) 29 % (24-48) Monocytes (%) (Auto) 8 % (0-9) Eosinophils (%) (Auto) 3 % (0-3) Basophils (%) (Auto) 1 % (0-3) Neutrophils # (Auto) 5.6 x10^3/uL (1.8-7.7) Lymphocytes # (Auto) 2.7 x10^3/uL (1.0-4.8) Monocytes # (Auto) 0.8 x10^3/uL (0.0-1.1) Eosinophils # (Auto) 0.3 x10^3/uL (0.0-0.7) Basophils # (Auto) 0.1 x10^3/uL (0.0-0.2) Sodium Level 140 mmol/L (136-145) Potassium Level 4.1 mmol/L (3.5-5.1) Chloride Level 107 mmol/L (98-107) Carbon Dioxide Level 27 mmol/L (21-32) Anion Gap 6 (6-14) Blood Urea Nitrogen 17 mg/dL (8-26) Creatinine 0.9 mg/dL (0.7-1.3) Estimated GFR (Cockcroft-Gault) 99.1 BUN/Creatinine Ratio 19 (6-20) Glucose Level 108 mg/dL (70-99) Calcium Level 8.6 mg/dL (8.5-10.1) Total Bilirubin 0.2 mg/dL (0.2-1.0) Aspartate Amino Transf (AST/SGOT) 16 U/L (15-37) Alanine Aminotransferase (ALT/SGPT) 21 U/L (16-63) Alkaline Phosphatase 87 U/L (46-116) Total Protein 6.6 g/dL (6.4-8.2) Albumin 3.4 g/dL (3.4-5.0) Albumin/Globulin Ratio 1.1 (1.0-1.7) Lipase 169 U/L (73-393) SARS-CoV-2 Antigen (Rapid) Negative (NEGATIVE) Problem List Problems Medical Problems: (1) Cholecystitis Status: Acute Assessment/Plan HIDA scan pending for today plan for laparoscopic cholecystectomy tomorrow based on those results Justicifation of Admission Dx: Justifications for Admission: Justification of Admission Dx: N/A EVA UMANZOR MD Sep 25, 2021 07:35
[2021-09-25] MEDS: SENNOSIDES/DOCUSATE 8.6/50MG TABLET. PO SCH ×2 (09:00→21:05)
[2021-09-25] MEDS ORDERED: MORPHINE SULFATE 4 MG/ML INJ. ONE (11:52)
--- NOTE | 2021-09-25 13:00 | RAD ---
HEPATOBILIARY SCAN WITH EJECTION FRACTION 09/25/2021 12:55 PM History: Reason: possible cholecystitis Procedure: Serial static images are obtained of the liver and biliary system in the frontal projectio n following IV administration of 5.1 mCi of Technetium 99m Choletec. . Findings: There is prompt hepatic clearance of tracer from the blood pool. There is homogeneous distr ibution throughout the liver. Radiotracer is seen being excreted into the small bowel. The gallbladde r however was not visualized after an hour. Morphine was administered and imaging of the gallbladder was continued, yesterday the gallbladder continued to be nonvisualized. IMPRESSION: Nonvisualization of the gallbladder. In the appropriate clinical setting findings would b e supportive of the diagnosis of acute cholecystitis. Electronically signed by: Francisco Hendrix MD (09/25/2021 12:58 PM) [id number]
--- NOTE | 2021-09-25 14:10 | PDOC ---
[facility] PROGRESS NOTE Date of Service DOS: DATE: 09/25/21 TIME: 14:08 Chief Complaint Chief Complaint Acute cholecystitis -Patient with 1 month history of intermittent right upper quadrant pain. Pain worsening or more persistent causing him to present. ultrasound treating as acute cholecystitis -Surgical consult. Discussed with them on the floor. Ordering HIDA scan and will have further plans after that --> unable to visualize gallbladder looks like cholecystectomy scheduled for 1117 -N.p.o. at midnight. -Discussed with surgical team about antibiotics they were okay with holding off for the moment. Patient did receive a dose of Zosyn in the emergency room -Pain control as needed -No home meds to resume -DVT prophylaxis History of Present Illness History of Present Illness Patient is a 30-year-old male presented to the emergency room overnight due to ongoing right upper quadrant pain. Patient says he has been having the pain going on for about 1 month. Says the pain will come on suddenly and is located to his right upper quadrant sometimes radiates around his flank. He says there is times when the pain will just go away and other times he will just have to deal with the pain until it goes away. However he has been having constant pain for the past 24 h. Reports decreased appetite. denies nausea vomiting fever chills. No diarrhea or melena. Presented the emergency room where abdominal ultrasound showed acute cholecystitis. He was given dose of Zosyn and plan for admission with surgical consult. When I evaluated the patient he was resting in bed confirmed history. Says pain is still present very tender on exam 09/25 Patient evaluated examined at bedside. He had just completed HIDA scan. This pain is doing okay. Minimal appetite. Unable to visualize gallbladder on HIDA scan. Based upon orders and notes from surgery team appears chance of cholecystectomy tomorrow. Plan of care discussed with bedside RN. Vitals/I&O Vitals/I&O: Vital Signs Date Time Temp Pulse Resp B/P (MAP) Pulse Ox O2 Delivery O2 Flow Rate FiO2 09/25/21 07:00 98.0 51 18 118/67 (84) 95 Room Air 98.0 I & O 09/24/21 09/24/21 09/25/21 15:00 23:00 07:00 Intake Total 0 ml 0 ml Balance 0 ml 0 ml Physical Exam General: Alert, Oriented X3, Cooperative, mild distress Heart: Regular rate, Normal S1, Normal S2 Abdomen: Normal bowel sounds, Other (Tender palpation right upper quad) Extremities: No edema, Normal pulses Skin: No significant lesion Assessment and Plan Assessmemt and Plan Problems Medical Problems: (1) Cholecystitis Status: Acute Comment Review of Relevant I have reviewed the following items senthil (where applicable) has been applied. Medications: Current Medications Medications (Trade) Dose Ordered Sig/Omar Route PRN Reason Start Time Stop Time Status Last Admin Dose Admin Ketorolac Tromethamine (Toradol 15mg Vial) 15 mg PRN Q6HRS PRN IVP Pain 09/24/21 17:30 09/25/21 05:00 DC 09/25/21 02:16 Justifications for Admission Other Justification PARVIN YAN MD Sep 25, 2021 14:10
--- NOTE | 2021-09-25 14:13 | NUR ---
AT 1200, [facility] CALLED FOR AN RN TO ADMINISTER MORPHINE 4MG IV PER PROTOCOL FOR GALLBLADDER SCAN. PT'S VSS. BP 121/79, HR 59, O2 SAT 98% ON RA. PT STATED HE'S BEEN HAVING ABDOMINAL PAIN FOR ABOUT A MONTH, RATING 6/10. MORPHINE 4MG IV GIVEN SLOWLY PER RIGHT PERIPHERAL IV, NO COMPLICATIONS. VITALS REMAINED STABLE AFTER MORPHINE GIVEN, BP 117/69 O2 96% ON RA, NO COMPLAINTS.
[2021-09-25 15:00] VITALS: BP 119/49
[2021-09-25] MEDS ORDERED: MORPHINE SULFATE 4 MG/ML INJ. IVP ONE (15:00)
[2021-09-25 19:53] VITALS: BP 119/59
[2021-09-25] MEDS: oxyCODONE IR 5 MG TABLET PO PRN (21:05)
[2021-09-25] MEDS: MORPHINE SULFATE 2 MG/ML INJ. IV PRN (21:06)
[2021-09-25 23:30] VITALS: BP 109/56
[2021-09-26] VITALS (12 sets, daily range): BP systolic 106–129; BP diastolic 43–88
[2021-09-26] MEDS: MORPHINE SULFATE 2 MG/ML INJ. IV PRN ×5 (01:12→20:19)
[2021-09-26] MEDS: HEPARIN for SUB-Q USE 5,000 UNIT/ML VIAL. SQ SCH ×3 (04:54→20:23)
[2021-09-26] MEDS ORDERED: IV RINGERS,LACTATED 1000ML 1,000 ML IV SCH (06:00)
[2021-09-26] MEDS ORDERED: PROCHLORPERAZINE 10 MG/2 ML VIAL. IVP PRN (06:00)
[2021-09-26] MEDS ORDERED: HYDROmorphone 2 MG/ML VIAL IVP PRN (06:00)
[2021-09-26] MEDS ORDERED: fentaNYL PF VIAL 100 MCG/2 ML VIAL IVP PRN ×2 (06:00)
[2021-09-26] MEDS: SENNOSIDES/DOCUSATE 8.6/50MG TABLET. PO SCH ×2 (07:32→20:18)
--- NOTE | 2021-09-26 09:28 | PDOC ---
[facility] PROGRESS NOTE Date of Service DOS: DATE: 09/26/21 TIME: 09:27 Chief Complaint Chief Complaint Acute cholecystitis -Patient with 1 month history of intermittent right upper quadrant pain. Pain worsening or more persistent causing him to present. ultrasound treating as acute cholecystitis -Surgical consult. Discussed with them on the floor. Ordering HIDA scan and will have further plans after that --> unable to visualize gallbladder looks like cholecystectomy scheduled for 1117 -N.p.o. at midnight. -Discussed with surgical team about antibiotics they were okay with holding off for the moment. Patient did receive a dose of Zosyn in the emergency room -Pain control as needed -No home meds to resume -DVT prophylaxis History of Present Illness History of Present Illness Patient is a 30-year-old male presented to the emergency room overnight due to ongoing right upper quadrant pain. Patient says he has been having the pain going on for about 1 month. Says the pain will come on suddenly and is located to his right upper quadrant sometimes radiates around his flank. He says there is times when the pain will just go away and other times he will just have to deal with the pain until it goes away. However he has been having constant pain for the past 24 h. Reports decreased appetite. denies nausea vomiting fever chills. No diarrhea or melena. Presented the emergency room where abdominal ultrasound showed acute cholecystitis. He was given dose of Zosyn and plan for admission with surgical consult. When I evaluated the patient he was resting in bed confirmed history. Says pain is still present very tender on exam 09/25 Patient evaluated examined at bedside. He had just completed HIDA scan. This pain is doing okay. Minimal appetite. Unable to visualize gallbladder on HIDA scan. Based upon orders and notes from surgery team appears chance of cholecystectomy tomorrow. Plan of care discussed with bedside RN. 09/26 Patient evaluated examined at bedside. He is resting in bed says pain is well controlled. Planning for cholecystectomy later this afternoon. Plan of care discussed with bedside RN. Vitals/I&O Vitals/I&O: Vital Signs Date Time Temp Pulse Resp B/P (MAP) Pulse Ox O2 Delivery O2 Flow Rate FiO2 09/26/21 07:00 98.0 55 18 113/69 (84) 97 98.0 09/26/21 04:51 Room Air I & O 09/25/21 09/25/21 09/26/21 14:59 22:59 06:59 Intake Total 0 ml 240 ml 240 ml Balance 0 ml 240 ml 240 ml Physical Exam General: Alert, Oriented X3, Cooperative, mild distress Heart: Regular rate, Normal S1, Normal S2 Abdomen: Normal bowel sounds, Other (Tender palpation right upper quad) Extremities: No edema, Normal pulses Skin: No significant lesion Assessment and Plan Assessmemt and Plan Problems Medical Problems: (1) Cholecystitis Status: Acute Comment Review of Relevant I have reviewed the following items senthil (where applicable) has been applied. Medications: Current Medications Medications (Trade) Dose Ordered Sig/Omar Route PRN Reason Start Time Stop Time Status Last Admin Dose Admin Morphine Sulfate (Morphine Sulfate) 4 mg 1X ONCE IVP 09/25/21 15:00 09/25/21 15:01 DC 09/25/21 12:05 Justifications for Admission Other Justification PARVIN YAN MD Sep 26, 2021 09:28
--- NOTE | 2021-09-26 13:30 | NUR ---
transferred to holding with . remains npo. wedding band taped on ring finger. pre-op shower and linen change
--- NOTE | 2021-09-26 13:31 | NUR ---
SW following. Discussed with RN, pt from home with sister, room air, NPO, COVID-19 negative. Pt having surgery this afternoon. SW will continue to follow.
[2021-09-26] MEDS ORDERED: MORPHINE SULFATE 2 MG/ML INJ. ONE ×2 (13:51→16:19)
[2021-09-26] MEDS ORDERED: ROCURONIUM 50 MG/5 ML VIAL. ONE (14:23)
[2021-09-26] MEDS ORDERED: fentaNYL PF VIAL 250 MCG/5 ML VIAL ONE (14:24)
[2021-09-26] MEDS ORDERED: KETOROLAC 30 MG/ML VIAL. ONE (14:26)
[2021-09-26] MEDS ORDERED: GLYCOPYRROLATE 1 MG/5 ML VIAL. ONE (14:28)
[2021-09-26] MEDS ORDERED: NEOSTIGMINE 10 MG/10 ML VIAL. ONE (14:28)
[2021-09-26] MEDS ORDERED: LIDOCAINE 2% PF 5 ML VIAL. ONE (14:29)
[2021-09-26] MEDS ORDERED: FAMOTIDINE 20 MG/2 ML VIAL ONE (14:29)
[2021-09-26] MEDS ORDERED: ONDANSETRON PF 4 MG/2 ML VIAL. ONE (14:29)
[2021-09-26] MEDS ORDERED: PROPOFOL 10 MG/ML (20ML) VIAL. IV ONE (14:29)
[2021-09-26] MEDS ORDERED: DEXAMETHASONE SOD PHOS 4 MG/ML VIAL ONE (14:30)
[2021-09-26] MEDS ORDERED: NEOSTIGMINE METHYLSULFATE 5 MG/5 ML SYRINGE. ONE (14:32)
[2021-09-26] MEDS ORDERED: BUPIVACAINE-EPI 0.25% 30 ML VIAL KIT. ONE (14:45)
[2021-09-26] MEDS ORDERED: ceFAZolin SODIUM IV Push 1 GM VIAL. IVP ONE (15:11)
--- NOTE | 2021-09-26 16:02 | PDOC4 ---
Operative Note Operative Note Date: September 26, 2021 at 1600 Preoperative diagnosis: Acute cholecystitis Postoperative diagnosis: Same Procedure: Laparoscopic cholecystectomy with fluorescein cholangiography Surgeon: Ruebn Specimen: Gallbladder Dictation: Patient is a 30-year-old male was mated to the hospital with right upper quadrant abdominal pain and ultrasound showing gallstones and a HIDA scan showing acute cholecystitis. Procedure of laparoscopic cholecystectomy was explained to the patient detail risk benefits were also discussed including bleeding infection injury to intra-abdominal contents possible necessitating further open operations alternatives to this procedure also discussed with the patient who seemed to understand and gave a verbal written consent to have procedure performed. Patient was taken to the operating room placed in supine general anesthesia was initiated once patient was sleeping intubated his abdomen was prepped and draped usual sterile fashion using ChloraPrep. Area just below the umbilicus was injected with quarter percent Marcaine with epinephrine incision was made 11 blade scalpel and a varies needle was placed within the abdomen creating pneumoperitoneum once this was complete 11 mm port was placed in a 5 mm camera was placed within the abdomen is noted that the gallbladder had some adhesions to the omentum otherwise no other abnormalities. A 5 mm port was placed in the epigastrium a 5 mm port was placed in the right midabdomen and a 5 mm port was placed in the right lateral abdomen. The dome of the gallbladder was grasped retracted cephalad the adhesions of the omentum were taken down with blunt dissection the infundibulum the gallbladder is grasped retracted laterally exposing the triangle of adherent tissues the triangle were taken down exposing the cystic duct and cystic artery a fluorescein cholangiography was then performed which showed good dye within the cystic duct and common bile duct with no evidence of obstruction. The cystic duct was then doubly clipped and transected the cystic artery was doubly clipped and transected and the gallbladder was taken off the liver with hook electrocautery placed in Endo Catch bag and roof the umbilicus the right upper quadrant was irrigated and suctioned dry hemostasis deemed appropriate that point and the pneumoperitoneum was reduced all ports were removed the fascial defect at the umbilicus was closed with a [id number] 0 Vicryl suture and the skin was reapproximated all port sites for subcuticular Monocryl Mastisol Steri-Strips and island dressings were applied. Patient was awakened and extubated in the operating room taken to recovery in stable condition all sponge instrument needle counts listed as correct estimated blood loss 20 mL EVA UMANZOR MD Sep 26, 2021 16:02
[2021-09-26] MEDS ORDERED: oxyCODONE/APAP 5/325 1 TAB TABLET PO PRN (16:15)
[2021-09-26] MEDS ORDERED: PROCHLORPERAZINE 10 MG/2 ML VIAL. ONE (16:19)
[2021-09-26] MEDS: MORPHINE SULFATE 2 MG/ML INJ. IVP PRN ×2 (16:25→16:34)
[2021-09-26] MEDS ORDERED: fentaNYL PF VIAL 100 MCG/2 ML VIAL ONE (16:48)
--- NOTE | 2021-09-26 17:07 | NUR ---
returned from recovery. He is asleep/sedated. at bedside. 4 small Telfa islands to abdomen are clean and dry. will open his eyes to name but resumes sleep easily. given water at this time. Addendum: 09/26/21 at 1711 by LEANDER TARANGO RN new iv site was started in the OR in the left hand. dressing is clean and dry
[2021-09-26] MEDS: oxyCODONE IR 5 MG TABLET PO PRN (22:49)
[2021-09-26] MEDS ORDERED: MORPHINE SULFATE 2 MG/ML INJ. IVP ONE (23:00)
[2021-09-27] MEDS: MORPHINE SULFATE 2 MG/ML INJ. IV PRN ×2 (02:59→05:43)
[2021-09-27 03:37] VITALS: BP 110/58
[2021-09-27] MEDS: HEPARIN for SUB-Q USE 5,000 UNIT/ML VIAL. SQ SCH ×2 (05:47→14:00)
[2021-09-27 07:00] VITALS: BP 95/43
[2021-09-27] MEDS: oxyCODONE/APAP 5/325 1 TAB TABLET PO PRN ×2 (08:10→12:07)
[2021-09-27] MEDS: SENNOSIDES/DOCUSATE 8.6/50MG TABLET. PO SCH (08:10)
[2021-09-27 11:00] VITALS: BP 94/53
--- NOTE | 2021-09-27 12:30 | NUR ---
reviewed orally discharge instructions regarding limitations to activities of daily living, driving medications and diet. saline lock dc'd at bedside . wants the flu shot; given.
[2021-09-27] MEDS ORDERED: FLU VACC QUAD 21-22 (6MOS+) PF 0.5 ML SYRINGE. VAX IM ONE (13:00)
[2021-09-27] MEDS ORDERED: OXYC1TAB15 PO (13:11)
--- NOTE | 2021-09-27 13:16 | PDOC ---
SURGICAL PROGRESS NOTE DATE: 09/27/21 TIME: 13:14 Subjective ambulating in halls doing well Vital Signs Vital Signs Date Time Temp Pulse Resp B/P (MAP) Pulse Ox O2 Delivery O2 Flow Rate FiO2 09/27/21 11:00 98.2 60 18 94/53 (67) 93 98.2 09/27/21 08:45 Room Air 09/26/21 16:34 6.0 I&O Intake and Output 09/27/21 07:00 Intake Total 1100 ml Output Total 1020 ml Balance 80 ml Intake Oral 600 ml IV Total 500 ml Output Urine Total 1000 ml Estimated Blood Loss 20 ml General: Alert, Oriented X3, Cooperative Abdomen: Soft Problem List Problems Medical Problems: (1) Cholecystitis Status: Acute Assessment/Plan s/p va ok to dc and FU Justicifation of Admission Dx: Justifications for Admission: Justification of Admission Dx: N/A ELEANOR NAVARRO APRN Sep 27, 2021 13:16
[2021-09-27] MEDS: oxyCODONE IR 5 MG TABLET PO PRN (14:44)
--- NOTE | 2021-09-27 14:49 | PDOC3 ---
[facility]-Discharge Summary Date of Admission: Date of Admission: Sep 24, 2021 Date of Discharge: Date of Discharge: Sep 27, 2021 Admission Diagnosis: Problems: (1) Cholecystitis Discharge Diagnosis: Discharge Diagnosis: Same Consults: Consults: Surgery Procedures: Procedures: [facility] Course: Hospital Course: Chief Complaint Acute cholecystitis -Patient with 1 month history of intermittent right upper quadrant pain. Pain worsening or more persistent causing him to present. ultrasound treating as acute cholecystitis -Surgical consult. Discussed with them on the floor. Ordering HIDA scan and will have further plans after that --> unable to visualize gallbladder looks like cholecystectomy scheduled for 1117 -N.p.o. at midnight. -Discussed with surgical team about antibiotics they were okay with holding off for the moment. Patient did receive a dose of Zosyn in the emergency room -Pain control as needed -No home meds to resume -DVT prophylaxis History of Present Illness History of Present Illness Patient is a 30-year-old male presented to the emergency room overnight due to ongoing right upper quadrant pain. Patient says he has been having the pain going on for about 1 month. Says the pain will come on suddenly and is located to his right upper quadrant sometimes radiates around his flank. He says there is times when the pain will just go away and other times he will just have to deal with the pain until it goes away. However he has been having constant pain for the past 24 h. Reports decreased appetite. denies nausea vomiting fever chills. No diarrhea or melena. Presented the emergency room where abdominal ultrasound showed acute cholecystitis. He was given dose of Zosyn and plan for admission with surgical consult. When I evaluated the patient he was resting in bed confirmed history. Says pain is still present very tender on exam 09/25 Patient evaluated examined at bedside. He had just completed HIDA scan. This pain is doing okay. Minimal appetite. Unable to visualize gallbladder on HIDA scan. Based upon orders and notes from surgery team appears chance of cholecystectomy tomorrow. Plan of care discussed with bedside RN. 09/26 Patient evaluated examined at bedside. He is resting in bed says pain is well controlled. Planning for cholecystectomy later this afternoon. Plan of care discussed with bedside RN. 09/27 Patient evaluated examined at bedside. He is resting in bedside pain well controlled. He is tolerated diet has been able to ambulate. Will discharge today. I spent greater than 30 minutes on the discharge of this patient. 23 minutes of advance care planning discussed with patient and his at bedside. Disposition: Disposition/Orders: D/C to Home Activity: Activity: Resume previous activity Diet: Diet: Regular Medications: Home Meds Active Scripts Oxycodone/Apap 5-325 (PERCOCET 5-325 MG TABLET ) 1 Each Tablet, 1 TAB PO PRN Q4HRS PRN for MILD-MODERATE PAIN, #15 TAB 0 Refills Prov:ELEANOR NAVARRO [employer]ESSMENT 09/27/21 Ibuprofen (IBUPROFEN) 800 Mg Tablet, 800 MG PO PRN Q6HRS PRN for INFLAMMATION, #20 TAB Prov:ALEX MERCER [employer]ESSMENT 03/25/18 Cyclobenzaprine Hcl (CYCLOBENZAPRINE HCL) 5 Mg Tablet, 1 TAB PO QHS, #15 TAB Prov:ALEX MERCER [employer]ESSMENT 03/25/18 Oxycodone/Apap 7.5-325 (PERCOCET 7.5-325 MG TABLET ) 1 Each Tablet, 1-2 TAB PO PRN Q6HRS PRN for PAIN, #60 TAB 0 Refills Prov:GAYLE ZIMMER MD 07/02/16 Reported Medications Ibuprofen (IBUPROFEN) 200 Mg Tablet, 800 MG PO 02/18/14 Discontinued Reported Medications Penicillin V Potassium (PENICILLIN V POTASSIUM) 250 Mg Tablet, 250 MG PO 02/18/14 Discontinued Scripts Ranitidine Hcl (ZANTAC) 150 Mg Tablet, 150 MG PO DAILY, #15 TAB Prov:DAVID OCONNOR MD 09/08/17 Methylprednisolone (MEDROL) 4 Mg Tab.ds.pk, 1 PKG PO UD, #1 PKG Prov:RACHEL JIMENEZ MD 06/26/17 Amoxicillin (AMOXICILLIN) 500 Mg Capsule, 1 CAP PO TID, #30 CAP Prov:RACHEL JIMENEZ MD 06/26/17 Scheduled Cyclobenzaprine Hcl (Cyclobenzaprine Hcl), 1 TAB PO QHS Scheduled PRN Ibuprofen (Ibuprofen), 800 MG PO PRN Q6HRS PRN for INFLAMMATION Oxycodone/Apap 5-325 (Percocet 5-325 Mg Tablet ), 1 TAB PO PRN Q4HRS PRN for MILD-MODERATE PAIN Oxycodone/Apap 7.5-325 (Percocet 7.5-325 Mg Tablet ), 1-2 TAB PO PRN Q6HRS PRN for PAIN Miscellaneous Medications Ibuprofen (Ibuprofen), 800 MG PO, (Reported) Discontinued Medications Amoxicillin (Amoxicillin), 1 CAP PO TID Methylprednisolone (Medrol), 1 PKG PO UD Penicillin V Potassium (Penicillin V Potassium), 250 MG PO, (Reported) Ranitidine Hcl (Zantac), 150 MG PO DAILY Justicifation of Admission Dx: Justifications for Admission: Justification of Admission Dx: N/A PARVIN YAN MD Sep 27, 2021 14:49
[2021-09-27 15:00] VITALS: BP 114/68
--- NOTE | 2021-09-27 15:00 | NUR ---
reviewed written discharge instructions and patient verbalized understanding. reviewed medications, limits to restrictions of daily living, and follow up with Dr. Miranda. dismissed to home
--- NOTE | 2021-10-02 17:27 | PATHOLOGY ---
[facility] Accession Number: [id number] . 01 Material submitted: . gallbladder - GALLBLADDER WITH CONTENTS . 01 Clinical history: . CHOLECYSTITIS LAPAROSCOPIC CHOLECYSTECTOMY . 02 Diagnosis: Gallbladder, excision: - Acute and chronic cholecystitis; negative for malignancy. - Lithiasis. . . Lymph node, "pericystic duct region", excision: - Reactive lymphoid hyperplasia. (MLK/db; 10/01/2021) LBQ 10/01/2021 1416 Local . 02 Electronically signed: . Gabriela Maria MD, Pathologist NPI- [id number] . 01 Gross description: . Fixative: Formalin Labeled: Gallbladder with contents Specimen received: Intact cholecystectomy specimen Dimensions: 9.5 x 3.5 x 3.3 cm Serosa: Bahena-purple and smooth Lymph node: Yes, a lymph node is present adjacent to the cystic neck measuring 1.7 cm in greatest dimension Mucosa: Green-black and velvety Average wall thickness: Ranges from 0.5-1.1 cm Calculi: Yes, the gallbladder is filled with gritty black bile and displays 2 bosselated calculi each measuring 0.8 cm in greatest dimension Abnormalities: An additional yellow-bahena bosselated calculus is present within the cystic neck, obstructing the cystic duct, and measuring 0.8 cm in greatest dimension A1- Tool Builder body, fundus, and the cystic duct margin. A2- Lymph node, serially sectioned. ([facility] [place]; 09/29/2021) SYC/SYC 09/29/2021 1120 Local . 02 Pathologist provided ICD-10: K80.12 . 02 CPT . 342667 Specimen Comment: A courtesy copy of this report has been sent to [phone], [phone] Specimen Comment: [id number], Specimen Comment: Report sent to , DR RUSH / DR MARTINEZ Specimen Comment: A duplicate report has been generated due to demographic updates. Performed at: 01 [facility] [address] [id number] MD Tim Guerra MD Phone: [phone] Performed at: 02 [facility] [address] [place], [place] [id number] MD Jonatan Dsouza MD Phone: [phone]
== END 2021-09-27 15:30 | disposition home or self-care (01) | DRG 419 ==
LOC: ER 02:49 → 5 NORTH 04:20
PROVIDERS: ADMIT Internal Medicine; ATTEND Internal Medicine
PROC: BF502Z0 Other Imaging of Bile Ducts using Fluorescing Agent, Intraoperative (ICD-10-PCS; 2021-09-26)
PROC: 0FT44ZZ Resection of Gallbladder, Percutaneous Endoscopic Approach (ICD-10-PCS; principal; 2021-09-26 15:00)
DX: K81.0 Acute cholecystitis (principal); F12.90 Cannabis use, unspecified, uncomplicated; F14.90 Cocaine use, unspecified, uncomplicated; J45.909 Unspecified asthma, uncomplicated; K76.0 Fatty (change of) liver, not elsewhere classified; K21.9 Gastro-esophageal reflux disease without esophagitis; Z20.822 Contact with and (suspected) exposure to COVID-19
CPT/HCPCS: 36415; 76705; 78226; 80053; 81001; 83690; 85025; 87426; 90471; 90686; 96365; 96374; 96375; 96376; A4209; A4364; A4657; A4930; A6219; A9537; J0690; J0780; J1100; J1644; J1885; J2270; J2405; J2543; J2704; J2710; J3010; J3490; J7120; U0003; U0005; 99285-25; G0378